=== PATIENT | female | born 1945 | race Caucasian/White ===

== ENCOUNTER 2016-08-19 11:48 | Day surgery (SDC) | payer MEDICARE, OTHER ==
[2016-08-19] MEDS ORDERED: LIDOCAINE 2% MDV (20MG/ML) 20ML VIAL IV ONE (15:43)
[2016-08-19] MEDS ORDERED: PROPOFOL 10 MG/ML VIAL IV ONE (15:43)
[2016-08-19] MEDS ORDERED: MIDAZOLAM HCL 2MG/2ML VIAL IV ONE (15:43)
--- NOTE | 2016-08-20 16:18 | Operative Note ---
DATE OF SURGERY: 08/19/2016 OPERATION: COLONOSCOPY with cold forceps polypectomy and random biopsy and cold snare polypectomy. PREOPERATIVE DIAGNOSIS: Chronic diarrhea. POSTOPERATIVE DIAGNOSES: 1. Colon polyps. 2. Sigmoid diverticulosis. 3. Hemorrhoids. 4. Hypertrophied anal papilla/anal tag. 5. Rule out microscopic colitis. PROCEDURE: After informed consent was obtained from the patient, she was placed in the left lateral decubitus position in the endoscopy suite, sedated and monitored by the department of anesthesia. Digital rectal exam revealed a protruding hypertrophied anal papilla versus externa tag. No other abnormalities were palpable. A well-lubricated [id number] colonoscope was inserted into the rectum and advanced to the cecum. In the cecum, there was a 4-5 mm sessile polyp removed with a cold snare. Minimal bleeding was noted. The ileocecal valve was cannulated revealing a normal-appearing distal terminal ileum. The cecum was otherwise unremarkable. The ascending colon was unremarkable. The transverse colon and descending colon each had a single diminutive polyp and each removed with a cold forceps. Random biopsies were obtained from the ascending colon, transverse colon, and descending colon. The sigmoid colon demonstrated scattered diverticula. The rectum was unremarkable in forward views. J-turn views did reveal some hemorrhoids. The endoscope was straightened, the rectal ampulla deflated, and the endoscope was removed. RECOMMENDATIONS: At this point I will start the patient on Questran powder 4 g packets 1 daily and we will await the results of tissue histology. As always, thank you for allowing me to participate in the healthcare of your patients. CC: NIMA Mcallister
== END 2016-08-19 14:09 | disposition home or self-care (01) ==
LOC: HOP 11:48
PROVIDERS: ATTEND Internal Medicine Gastroenterology
DX: D12.3 Benign neoplasm of transverse colon (principal); D12.0 Benign neoplasm of cecum; D12.4 Benign neoplasm of descending colon

== ENCOUNTER 2017-04-21 12:06 | Emergency (ER) | payer MEDICARE, OTHER ==
[2017-04-21] MEDS ORDERED: ACETAMINOPHEN W/ CODEINE 300MG/30MG TABLET PO ONE (12:22)
--- NOTE | 2017-04-21 12:23 | Emergency Department Record ---
History of Present Illness - General Chief Complaint: Hypertension Stated Complaint: HIGH BLOOD PRESSURE Time Seen by Provider: 04/21/17 12:13 Source: Patient Mode of Arrival: Ambulatory Limitations: No limitations - History of Present Illness Initial Comments: The patient is here due to having a one week hx of feeling lightheaded off and on with dizziness intermittently. She has felt weak and flushed at times and has had a DESAI off and on. She denies any blurred vision, arm or leg numbness, tingling or weakness. The patient became concerned today and took her BP and noticed it was elevated so she decided to come to the ER. She has had a hx of HTN and used to be on medicine but it was stopped about 4 years ago. The patient also has had a hx of chronic neck pain and the pain has been much worse recently. The patient denies any fall or trauma. MD Complaint: Dizziness, Lightheadedness Onset/Timin -: Week(s) Description: Lightheadedness History of Same: Yes History of Trauma: No Severity: Mild Improves With: Nothing Worsens With: Nothing Associated Symptoms: Denies other symptoms - Tomer Coma Scale Eye Response: (4) Open spontaneously Motor Response: (6) Obeys commands Verbal Response: (5) Oriented [place] Total: 15 - Related Data Previous Rx's Medication Instructions Recorded Hydrocodone/Acetaminophen [[place] 1 each PO QID #20 tablet 04/21/17 5-325 Tablet] Lisinopril 10 mg PO DAILY #30 tab 04/21/17 Allergies Allergy/AdvReac Type Severity Reaction Status Date / Time codeine AdvReac VOMITING Verified 04/21/17 12:13 Travel Screening - Travel/Exposure Within Last 30 Days Have you traveled within the last 30 days?: No Review of Systems Constitutional: Denies: Chills, Fever Eyes: Denies: Eye discharge ENT: Denies: Congestion Respiratory: Denies: Cough, Dyspnea Past Medical History - SOCIAL HISTORY Smoking Status: Former smoker Alcohol Use: None Drug Use: None - RESPIRATORY Hx Respiratory Disorders: Yes Hx Bronchitis: Yes Hx COPD: Yes Hx Pneumonia: Yes Hx Pulmonary Embolism: Yes Comment:: seasonal allergies - CARDIOVASCULAR Hx Cardio Disorders: Yes Hx Deep Vein Thrombosis: Yes (LLE x'3 w/fx 2012) Hx Edema: Yes (LLE) Hx Hypertension: Yes - NEURO Hx Neuro Disorders: Yes Hx Headaches: Yes - GI Hx GI Disorders: Yes Hx Diverticulitis: Yes Hx of Polyps: Yes - Hx Genitourinary Disorders: Yes Hx Bladder Problem: Yes (stress incontinence) Hx Kidney Stones: Yes - ENDOCRINE Hx Endocrine Disorders: No - MUSCULOSKELETAL Hx Musculoskeletal Disorders: Yes Hx Arthritis: Yes - PSYCH Hx Psych Problems: No - HEMATOLOGY/ONCOLOGY Hx Hematology/Oncology Disorders: Yes Hx Cancer: Yes (cervical) Hx Chemotherapy: No Hx Radiation Therapy: No Family Medical History Any Significant Family History?: Yes Family Hx Comment (NOT TO BE USED IN PLACE OF ITEMS BELOW): big history of colon cancer- both parents from and one brother had but is living. Hx Cancer: Father, Mother, Brother/Sister *Cancer Comment: colon Hx Heart Disease: Grandparents Physical Exam - General General Appearance: Alert, Oriented x3, Cooperative, No acute distress - Head Head exam: Atraumatic, Normocephalic, Normal inspection - Eye Eye exam: Normal appearance, PERRL, EOMI - ENT Throat exam: Normal inspection. negative: Tonsillar erythema, Tonsillar exudate - Neck Neck exam: Normal inspection, Full ROM. negative: Tenderness - Respiratory Respiratory exam: Normal lung sounds bilaterally. negative: Respiratory distress - Cardiovascular Cardiovascular Exam: Regular rate, Normal rhythm, Normal heart sounds. negative : Diastolic murmur, Systolic murmur - Extremities Extremities exam: Normal inspection, Full ROM, Normal capillary refill. negative: Tenderness - Neurological Neurological exam: Alert, Normal gait, Oriented X3, Reflexes normal, Other (Neg Drift and [place].). negative: Abnormal gait, Altered, Motor sensory deficit - Psychiatric Psychiatric exam: negative: Anxious, Depressed, Flat affect - Skin Skin exam: negative: Rash Course Vital Signs 04/21/17 12:09 Temperature 98.3 F Pulse Rate 87 Respiratory 18 Rate Blood Pressure 181/93 Pulse Ox 94 L - Reevaluation(s) Reevaluation #1: The patient is doing very well. She denies any DESAI, blurred vision, nausea, weakness or balance issues. I did explain the lab tests and CT are WNL's. On exam her BP is much improved and she is smiling, happy and very pleasant. Her gait is normal and she would really like to go home. 04/21/17 14:11 Reevaluation #2: The patient is doing very well at discharge. She denies any head or neck pain and is very pleasant and conversant. I did discuss the plan with Jennifer (NIMA) and we will start the patient on Lisinopril and have her F/U in the clinic as planned. 04/21/17 14:45 Medical Decision Making - Data Complexity MDM Data: Labs Ordered and/or Reviewed, X-Ray Ordered and/or Reviewed, EKG Ordered and/or Reviewed - Lab Data Result diagrams: 04/21/17 12:43 04/21/17 12:43 - EKG Data -: EKG Interpreted by Me EKG: No Acute Changes, Unchanged From Previous - Radiology Data Radiology results: Report reviewed (Head CT: No acute changes per Rad.) Disposition Disposition: Discharge Clinical Impression: Chronic neck pain Disposition: Home, Self-Care Condition: (2) Stable Instructions: Hypertension (ED), Neck Pain (ED) Additional Instructions: Please continue your regular medicines and add the [place] and Lisinopril as directed. Please see your PCP next month as planned. Return to the ER for any worsening symptoms, weakness, balance issues or confusion. Prescriptions: Hydrocodone/Acetaminophen [[place] 5-325 Tablet] 1 each PO QID #20 tablet Lisinopril 10 mg PO DAILY #30 tab Forms: Patient Portal Access Time of Disposition: 14:42 Quality - Quality Measures Quality Measures: N/A - Blood Pressure Screening View Details: Yes Does Patient Have Any of the Following: No Blood Pressure Classification: Hypertensive Reading Systolic Measurement: 181 Diastolic Measurement: 93 Screening for High Blood Pressure: < Pre-Hypertensive BP, F/U Documented > [ G8950] Pre-Hypertensive Follow-up Interventions: Referral to alternative/primary care provider.
[2017-04-21] MEDS ORDERED: HYDROCODONE/APAP 5/325MG TABLET PO ONE (12:35)
[2017-04-21] MEDS: LORAZEPAM 0.5 MG TABLET PO ONE ×2 (12:44→13:09)
[2017-04-21 12:56] LABS: BASO % 0.3 % (0-6); EOS % 0.7 % (0-6); GRAN % 79.4 % (47-80); HEMOGLOBIN 15.3 gm/dl (11.6-16.0); LYMPH % 12.2 % (16-45); MEAN CELL VOLUME 91.4 fl (81-97); MEAN CORPUSCULAR HEMOGLOBIN 29.8 pg (27-33); MEAN CORPUSCULAR HGB CONC 32.6 g/dl (32-36); MEAN PLATELET VOLUME 10.9 fl (7.4-10.4); MONO % 7.4 % (0-9); PLATELET COUNT 251 K/uL (130-400); RED BLOOD COUNT 5.14 M/uL (3.80-5.40); RED CELL DISTRIBUTION WIDTH 13.4 % (11.5-14.5); WHITE BLOOD COUNT W/O DIFF 7.6 K/uL (4.2-12.2)
[2017-04-21 13:06] LABS: BLOOD UREA NITROGEN 23 mg/dL (8-23); CREATININE 0.6 mg/dL (0.5-0.9); EST GLOMERULAR FILTRATION RATE > 60 mL/min
[2017-04-21 13:07] LABS: TOTAL PROTEIN 7.8 g/dL (6.6-8.7)
[2017-04-21 13:09] LABS: GLUCOSE,RANDOM 110 mg/dL (74-109)
[2017-04-21 13:11] LABS: ALT/SGPT 40 U/L (<33)
[2017-04-21 13:12] LABS: ALB/GLOB RATIO 1.8 (1.1-1.8); ALKALINE PHOSPHATASE 115 U/L (35-104); AST/SGOT 23 U/L (10.0-35.0)
--- NOTE | 2017-04-22 09:14 | CT SCAN REPORT ---
EXAM: HEAD CT WITHOUT CONTRAST HISTORY: DIZZINESS. TECHNIQUE: Axial CT scan of the head was performed without IV contrast. Comparison: No prior head CT with which to compare. Hand dominance: Left. FINDINGS: No definite acute intracranial hemorrhage identified. No focal mass effect or midline shift apparent. No definite acute infarct or intracranial mass lesion seen. IMPRESSION: THE EMERGENCY NONCONTRAST HEAD CT APPEARS NEGATIVE WITH NO DEFINITE ACUTE INTRACRANIAL HEMORRHAGE OR FOCAL MASS EFFECT IDENTIFIED. JOB NUMBER: [id number] MTDD
== END 2017-04-21 14:45 | disposition home or self-care (01) ==
LOC: ER 12:06
DX: G89.29 Other chronic pain (principal); M54.2 Cervicalgia; R42 Dizziness and giddiness; R51 Headache; H53.8 Other visual disturbances; I10 Essential (primary) hypertension; Z87.891 Personal history of nicotine dependence
CPT/HCPCS: 70450; 80053; 84443; 85025; 93005; 93010; 99284

== ENCOUNTER 2017-04-25 12:22 | Emergency (ER) | payer MEDICARE, OTHER ==
[2017-04-25] MEDS ORDERED: ACETAMINOPHEN 325 MG TAB PO ONE (12:49)
--- NOTE | 2017-04-25 12:49 | Emergency Department Record ---
History of Present Illness - General Chief Complaint: Hypertension Stated Complaint: HYPERTENSION Time Seen by Provider: 04/25/17 12:36 Source: Patient Mode of Arrival: Ambulatory Limitations: No limitations - History of Present Illness Initial Comments: The patient is here due to not feeling well for 3 days. She was in the ER 4 days ago and had mildly elevated BP and was started on Lisinopril for chronic HTN and [place] for chronic neck pain. Since she has been home and states her BP has been up and down and she appears to be getting very anxious about it. She also has felt mildly SOB at times but denies any CP, back pain, or PRICE. The patient is very anxious about her blood pressure and is very focussed on it. Onset/Timin -: Days(s) Timing: Unsure Description: Other History of Same: Yes History of Trauma: No Severity: Mild Improves With: Nothing Worsens With: Nothing Associated Symptoms: Denies other symptoms - Related Data Home Medications Medication Instructions Recorded Confirmed Last Taken Diphenhydramine HCl [Benadryl] 50 mg PO QHS 04/25/17 04/25/17 Unknown Previous Rx's Medication Instructions Recorded Hydrocodone/Acetaminophen [[place] 1 each PO QID #20 tablet 04/21/17 5-325 Tablet] Lisinopril 10 mg PO DAILY #30 tab 04/21/17 Lorazepam [Ativan] 0.5 mg PO Q12HR #14 tablet 04/25/17 Allergies Allergy/AdvReac Type Severity Reaction Status Date / Time codeine AdvReac VOMITING Verified 04/21/17 12:13 Travel Screening - Travel/Exposure Within Last 30 Days Have you traveled within the last 30 days?: No Review of Systems Constitutional: Denies: Chills, Fever Eyes: Denies: Eye discharge ENT: Denies: Congestion Respiratory: Reports: Dyspnea. Denies: Cough Past Medical History - SOCIAL HISTORY Smoking Status: Former smoker Alcohol Use: None Drug Use: None - RESPIRATORY Hx Respiratory Disorders: Yes Hx Bronchitis: Yes Hx COPD: Yes Hx Pneumonia: Yes Hx Pulmonary Embolism: Yes Comment:: seasonal allergies - CARDIOVASCULAR Hx Cardio Disorders: Yes Hx Deep Vein Thrombosis: Yes (LLE x'3 w/fx 2012) Hx Edema: Yes (LLE) Hx Hypertension: Yes - NEURO Hx Neuro Disorders: Yes Hx Headaches: Yes - GI Hx GI Disorders: Yes Hx Diverticulitis: Yes Hx of Polyps: Yes - Hx Genitourinary Disorders: Yes Hx Bladder Problem: Yes (stress incontinence) Hx Kidney Stones: Yes - ENDOCRINE Hx Endocrine Disorders: No - MUSCULOSKELETAL Hx Musculoskeletal Disorders: Yes Hx Arthritis: Yes - PSYCH Hx Psych Problems: No - HEMATOLOGY/ONCOLOGY Hx Hematology/Oncology Disorders: Yes Hx Cancer: Yes (cervical) Hx Chemotherapy: No Hx Radiation Therapy: No Family Medical History Any Significant Family History?: Yes Family Hx Comment (NOT TO BE USED IN PLACE OF ITEMS BELOW): big history of colon cancer- both parents from and one brother had but is living. Hx Cancer: Father, Mother, Brother/Sister *Cancer Comment: colon Hx Heart Disease: Grandparents Physical Exam - General General Appearance: Alert, Oriented x3, Cooperative, No acute distress - Head Head exam: Atraumatic, Normocephalic, Normal inspection - Eye Eye exam: Normal appearance, PERRL - ENT Throat exam: Normal inspection. negative: Tonsillar erythema, Tonsillar exudate - Neck Neck exam: Normal inspection, Full ROM. negative: Tenderness - Respiratory Respiratory exam: Normal lung sounds bilaterally. negative: Respiratory distress - Cardiovascular Cardiovascular Exam: Regular rate, Normal rhythm, Normal heart sounds - GI/Abdominal GI/Abdominal exam: Soft, Normal bowel sounds. negative: Tenderness - Extremities Extremities exam: Normal inspection, Full ROM, Normal capillary refill. negative: Tenderness - Neurological Neurological exam: Alert. negative: Motor sensory deficit Course Vital Signs 04/25/17 04/25/17 12:27 12:36 Temperature 98.6 F Pulse Rate 74 Respiratory 18 Rate Blood Pressure 168/94 Pulse Ox 92 L - Reevaluation(s) Reevaluation #1: The patient is doing much better at this time. Her BP is now 139/74, RA biox 96 % with a HR of 70. She is much more relaxed and calm. 04/25/17 13:32 Reevaluation #2: The patient is doing much better at this time. She denies any CP, SOB, CESIA or DESAI. Her BP is still normal after the Ativan. I did explain to her that her tests are WNL's but that due to her complaints I did recommend a short stay hospital admission. The patient is refusing and would like to leave AMA. I explained to her that the risks of leaving are that she could go home and have a stroke, become disabled, have an TN and even . She understands and accepts the risks. Presently she does have proper decision making capacity and was instructed to return to the ER for any problems. 04/25/17 13:57 Medical Decision Making - Data Complexity MDM Data: X-Ray Ordered and/or Reviewed, EKG Ordered and/or Reviewed - Lab Data Result diagrams: 04/25/17 13:10 04/25/17 13:10 - EKG Data -: EKG Interpreted by Me EKG: No Acute Changes, Unchanged From Previous - Radiology Data Radiology results: Report reviewed (CXR: Neg.) Disposition Disposition: Discharge Clinical Impression: Hypertension Disposition: Against Medical Advice Condition: (2) Stable Instructions: Hypertension (ED) Additional Instructions: Please continue your regular medicines and take the Ativan as directed. Please see your PCP on Tuesday as planned. Return to the ER for any worsening symptoms. Prescriptions: Lorazepam [Ativan] 0.5 mg PO Q12HR #14 tablet Forms: Patient Portal Access Time of Disposition: 14:20 Quality - Quality Measures Quality Measures: N/A - Blood Pressure Screening View Details: Yes Does Patient Have Any of the Following: No Blood Pressure Classification: Pre-Hypertensive BP Reading Systolic Measurement: 139 Diastolic Measurement: 65 Screening for High Blood Pressure: < Pre-Hypertensive BP, F/U Documented > [ G8950] Pre-Hypertensive Follow-up Interventions: Referral to alternative/primary care provider.
[2017-04-25] MEDS ORDERED: LORAZEPAM 0.5 MG TABLET PO ONE (12:50)
[2017-04-25 13:18] LABS: BASO % 0.2 % (0-6); EOS % 0.8 % (0-6); GRAN % 76.1 % (47-80); HEMOGLOBIN 14.3 gm/dl (11.6-16.0); LYMPH % 15.7 % (16-45); MEAN CELL VOLUME 92.6 fl (81-97); MEAN CORPUSCULAR HEMOGLOBIN 29.4 pg (27-33); MEAN CORPUSCULAR HGB CONC 31.8 g/dl (32-36); MEAN PLATELET VOLUME 10.6 fl (7.4-10.4); MONO % 7.2 % (0-9); PLATELET COUNT 233 K/uL (130-400); RED BLOOD COUNT 4.86 M/uL (3.80-5.40); RED CELL DISTRIBUTION WIDTH 13.1 % (11.5-14.5); WHITE BLOOD COUNT W/O DIFF 6.4 K/uL (4.2-12.2)
[2017-04-25 13:32] LABS: BLOOD UREA NITROGEN 13 mg/dL (8-23); CREATININE 0.6 mg/dL (0.5-0.9); EST GLOMERULAR FILTRATION RATE > 60 mL/min
[2017-04-25 13:34] LABS: GLUCOSE,RANDOM 106 mg/dL (74-109)
[2017-04-25 13:37] LABS: CREATINE PHOSPHOKINASE 78 U/L (26-192)
[2017-04-25 13:39] LABS: CKMB 2.3 ng/mL (<3.77)
--- NOTE | 2017-04-26 09:31 | RADIOLOGY REPORT ---
EXAM: CHEST, TWO VIEWS HISTORY: ELEVATED BLOOD PRESSURE AND OCCASIONAL SHORTNESS OF BREATH DUE TO ANXIETY. TECHNIQUE: Upright PA and lateral views of the chest were obtained. Comparison: Portable chest dated 10/23/06. Two view chest radiographic examination dated 01/05/17. FINDINGS: The heart is not enlarged and the pulmonary vasculature is nondilated. The thoracic aorta is tortuous and atherosclerotic. The lungs and pleural spaces are clear. There are degenerative changes scattered throughout the visualized spine and shoulder girdles. Mild anterior wedging of a couple lower thoracic vertebral bodies, not significantly changed since 01/05/17. IMPRESSION: NO RADIOGRAPHIC EVIDENCE OF ACUTE CARDIOPULMONARY DISEASE WITHOUT SIGNIFICANT CHANGE SINCE 01/05/17. JOB NUMBER: [id number] [facility]
== END 2017-04-25 14:40 | disposition left against medical advice (07) ==
LOC: ER 12:22
DX: R06.02 Shortness of breath (principal); M54.2 Cervicalgia; R42 Dizziness and giddiness; Z87.891 Personal history of nicotine dependence
CPT/HCPCS: 71046; 80048; 82550; 82553; 84484; 85025; 93005; 93010; 99284